=== PATIENT | male | born 1995 | race African-American/Black ===

== ENCOUNTER 2017-08-12 13:21 | Emergency (ER) | payer OTHER ==
[~2017-08-12] VITALS: Ht 180.3 cm; Wt 95.5 kg
[2017-08-12 13:25] VITALS: BP 159/89; PULSE 98; TEMP 98.7
[2017-08-12] MEDS ORDERED: BACTRIM DS 8001 TAB PO (14:30)
== END 2017-08-12 14:45 | disposition other institution (70) ==
LOC: COL.ER 13:21
DX: L60.0 Ingrowing nail (principal); J45.909 Unspecified asthma, uncomplicated